=== PATIENT | female | born 1940 | race Caucasian/White ===

== ENCOUNTER 2020-11-30 19:37 | Emergency (ER) | payer OTHER, MEDICARE | END 2020-11-30 21:10 | disposition home or self-care (01) | LOC: CSHERS 19:37 | DX: S00.83XA Contusion of other part of head, initial encounter (principal); K21.9 Gastro-esophageal reflux disease without esophagitis; W01.0XXA Fall on same level from slipping, tripping and stumbling without subsequent striking against object, initial encounter | CPT/HCPCS: 70450; 72125 ==